=== PATIENT | female | born 1985 | race Caucasian/White ===

== ENCOUNTER 2019-04-12 15:55 | Emergency (ER) | payer BC ==
[~2019-04-12] VITALS: Ht 170.2 cm; Wt 56.7 kg
== END 2019-04-12 18:58 | disposition home or self-care (01) ==
LOC: ER 15:55
DX: S70.01XA Contusion of right hip, initial encounter (principal); N39.0 Urinary tract infection, site not specified; W18.09XA Striking against other object with subsequent fall, initial encounter; Y93.89 Activity, other specified; Y92.89 Other specified places as the place of occurrence of the external cause; Y99.8 Other external cause status